=== PATIENT | male | born 1990 | race Caucasian/White ===

== ENCOUNTER 2023-12-15 04:27 | Day surgery (SDC) | payer BC ==
[2023-12-11 16:36] VITALS: BMI 27.8
[2023-12-15] MEDS ORDERED: LIDOCAINE HCL/PF 1% SDV 5ML VIAL ONE (07:50)
[2023-12-15] MEDS ORDERED: BUPIVACAINE HCL/PF 0.75% 10 ML VIAL ONE (07:50)
[2023-12-15] MEDS ORDERED: ACETAMINOPHEN 500 MG TABLET (FP) PO PRN (12:39)
[2023-12-15 14:53] VITALS: RESP 18
[2023-12-15] MEDS: LIDOCAINE HCL 1% PRESERVATIVE FREE - 30ML VIAL IJ ONE (16:50)
[2023-12-15] MEDS: BUPIVACAINE HCL/PF 0.75% 10 ML VIAL NR ONE ×2 (16:55)
[2023-12-15 17:23] VITALS: BP 123/76; PULSE 75; TEMP 97.8
== END 2023-12-15 17:24 | disposition home or self-care (01) ==
LOC: JASU-SURG 04:27
PROVIDERS: ATTEND Pain Medicine Pain Medicine
PROC: 3E0T3BZ Introduction of Anesthetic Agent into Peripheral Nerves and Plexi, Percutaneous Approach (ICD-10-PCS; principal; 2023-12-15 16:00)
DX: M47.816 Spondylosis without myelopathy or radiculopathy, lumbar region (principal)
CPT/HCPCS: 76000-TC-FY

== ENCOUNTER 2024-02-01 05:27 | Day surgery (SDC) | payer BC ==
[2024-01-29 11:36] VITALS: BMI 27.8
[2024-02-01] MEDS ORDERED: LIDOCAINE HCL/PF 1% SDV 5ML VIAL ONE (12:54)
[2024-02-01] MEDS: LIDOCAINE HCL 1% PRESERVATIVE FREE - 30ML VIAL IJ ONE (13:15)
[2024-02-01] MEDS: BUPIVACAINE HCL/PF 0.75% 10 ML VIAL NR ONE (13:15)
[2024-02-01] MEDS ORDERED: ACETAMINOPHEN 500 MG TABLET (FP) ONE (13:43)
[2024-02-01] MEDS: ACETAMINOPHEN 500 MG TABLET (FP) PO PRN (13:46)
[2024-02-01 14:00] VITALS: BP 122/83; PULSE 63; RESP 18; TEMP 98
== END 2024-02-01 14:10 | disposition home or self-care (01) ==
LOC: JASU-SURG 05:27
PROVIDERS: ATTEND Pain Medicine Pain Medicine
PROC: 3E0T33Z Introduction of Anti-inflammatory into Peripheral Nerves and Plexi, Percutaneous Approach (ICD-10-PCS; 2024-02-01)
PROC: 3E0T3BZ Introduction of Anesthetic Agent into Peripheral Nerves and Plexi, Percutaneous Approach (ICD-10-PCS; principal; 2024-02-01 13:00)
DX: M47.816 Spondylosis without myelopathy or radiculopathy, lumbar region (principal)
CPT/HCPCS: 76000-TC-FY

== ENCOUNTER 2024-03-01 04:33 | Day surgery (SDC) | payer BC ==
[2024-02-29 17:17] VITALS: BMI 27.8
[2024-03-01] MEDS ORDERED: BUPIVACAINE HCL/PF 0.75% 10 ML VIAL ONE (07:43)
[2024-03-01] MEDS ORDERED: DEXAMETHASONE SOD PHOSPHATE 10 MG/1 ML VIAL ONE (07:43)
[2024-03-01] MEDS ORDERED: LIDOCAINE HCL/PF 1% SDV 5ML VIAL ONE (07:43)
[2024-03-01] MEDS ORDERED: LIDOCAINE HCL/PF 2% SDV 5ML VIAL ONE (07:43)
[2024-03-01 11:55] VITALS: RESP 18; TEMP 98.4
[2024-03-01] MEDS ORDERED: ACETAMINOPHEN 500 MG TABLET (FP) ONE (12:17)
[2024-03-01] MEDS: ACETAMINOPHEN 500 MG TABLET (FP) PO PRN (12:21)
[2024-03-01 12:31] VITALS: BP 139/84; PULSE 67
== END 2024-03-01 12:30 | disposition home or self-care (01) ==
LOC: JASU-SURG 04:33
PROVIDERS: ATTEND Pain Medicine Pain Medicine
PROC: 015B3ZZ Destruction of Lumbar Nerve, Percutaneous Approach (ICD-10-PCS; principal; 2024-03-01 11:15)
DX: M47.816 Spondylosis without myelopathy or radiculopathy, lumbar region (principal)
CPT/HCPCS: 76000-TC-FY; J1100